=== PATIENT | male | born 1970 | race Caucasian/White ===

== ENCOUNTER 2017-11-03 09:55 | Emergency (ER) | payer OTHER ==
[2017-11-03 10:21] VITALS: TEMP 98.4
--- NOTE | 2017-11-03 10:53 | ED PDOC ---
Arrival/HPI - General Chief Complaint: Finger,Hand,&Wrist Time Seen by Provider: 11/03/17 10:45 Historian: Patient - History of Present Illness Narrative History of Present Illness (Text): 11/03/17 10:46 This 47 yo male presents to this ED c/o left 4th finger injury and pain x 3 hours. Patient stated while walking down stairs, he tripped and fell down on the floor fro 1 step. He stated his finger hyperflexed on the fall. Denies other complains. Denies BOWLES, diplopia, dysarthria, sob, cp, abdominal pain, dizziness, or abnormal gait. Time/Duration: 1-3 hours Context: Home Past Medical History - Provider Review Nursing Documentation Reviewed: Yes - Psychiatric Hx Psychophysiologic Disorder: No Hx Substance Use: No Family/Social History - Physician Review Nursing Documentation Reviewed: Yes Family/Social History: Other (noncontributory) Smoking Status: Never Smoked Hx Alcohol Use: No Hx Substance Use: No Allergies/Home Meds Allergies/Adverse Reactions: Allergies No Known Allergies Allergy (Verified 11/03/17 10:15) Review of Systems - Review of Systems Constitutional: Normal. absent: Fatigue, Weight Change, Fevers, Night Sweats Eyes: Normal ENT: Normal Respiratory: Normal Cardiovascular: Normal Gastrointestinal: Normal Genitourinary Male: Normal Musculoskeletal: Other (see hpi) Skin: Normal Neurological: Normal Endocrine: Normal Hemo/Lymphatic: Normal Psychiatric: Normal Physical Exam Vital Signs Temp Pulse Resp BP Pulse Ox 11/03/17 10:15 98.4 F 72 16 107/77 99 Temperature: Afebrile Blood Pressure: Normal Pulse: Regular Respiratory Rate: Normal Appearance: Positive for: Well-Appearing, Non-Toxic, Comfortable Pain Distress: None Mental Status: Positive for: Alert and Oriented X 3 - Systems Exam Head: Present: Atraumatic, Normocephalic, Other (no raccoon sign) Pupils: Present: PERRL, Other (no hyphema) Extroacular Muscles: Present: EOMI Conjunctiva: Present: Normal Ears: Present: Normal, Other (no hemotympanum) Mouth: Present: Moist Mucous Membranes Neck: Present: Normal Range of Motion Back: Present: Normal Inspection Upper Extremity: Present: NORMAL PULSES, Tenderness, Swelling, Capillary Refill < 2s, Other ((+) left 4th finger, PIPJ area is swollen and tender. Decreased ROM on this finger due to pain. Ring finger on affected finger.). No: Edema Lower Extremity: Present: Normal Inspection, Normal ROM Neurological: Present: GCS=15, CN II-XII Intact, Speech Normal, Motor Func Grossly Intact Skin: Present: Warm, Dry, Normal Color. No: Rashes Psychiatric: Present: Alert, Oriented x 3, Normal Insight, Normal Concentration Medical Decision Making ED Course and Treatment: 11/03/17 11:35 Re-evaluation. Patient feels better. Discussed results and plan with patient who expresses understanding. All questions answered and there is agreement with the plan to discharge home with instructions. Patient stable for discharge. Return if symptoms persist or worsen. Patient was recommended to see hand specialist in 3-5 days, and to return to ED if pain worsen. NATALIA. Re-evaluation Time: 11:35 Reassessment Condition: Re-examined, Improved - RAD Interpretation Narrative RAD Interpretations (Text): 11/03/17 11:35 Finger Fracture: (+) prox. middle phalanx Fx., left 4th finger Radiology Orders: 11/03/17 10:45 HAND LEFT 4TH DIGIT (FINGER) [RAD] Stat - Medication Orders Current Medication Orders: Discontinued Medications Ibuprofen (Motrin Tab) 600 mg PO STAT STA Stop: 11/03/17 11:32 Disposition/Present on Arrival - Present on Arrival Any Indicators Present on Arrival: No History of DVT/PE: No History of Uncontrolled Diabetes: No Urinary Catheter: No History of Decub. Ulcer: No History Surgical Site Infection Following: None - Disposition Have Diagnosis and Disposition been Completed?: Yes Diagnosis: Fracture of phalanx of finger Disposition: HOME/ ROUTINE Disposition Time: 11:37 Patient Plan: Discharge Condition: GOOD Discharge Instructions (ExitCare): Finger Fracture (ED) Additional Instructions: Call private doctor for follow up visit in 3-5 days. Do not remove finger splint till evaluated by hand doctor. Keep splint clean and dry. Take medication for pain as instructed with food. Return to emergency if pain worsen. Keep finger elevated, rest, ice, splint. Prescriptions: Ibuprofen [Motrin] 600 mg PO Q8 PRN #20 tab PRN Reason: Pain, Severe (8-10) Referrals: Umesh Roberts MD [Staff Provider] - Follow up with primary Forms: Instilling Values (Wol[employer])
[2017-11-03 11:50] VITALS: BP 105/71; PULSE 69; RESP 18; O2SAT 98
--- NOTE | 2017-11-03 14:40 | RAD ---
PROCEDURE: Left Hand Radiographs. HISTORY: pain s/p trauma COMPARISON: None. FINDINGS: BONES: There is a minimally displaced fracture through the base of the 4th middle phalanx. This extends into the articular surface on the ventral side JOINTS: Normal. No osteoarthritic changes. SOFT TISSUES: Normal. OTHER FINDINGS: None. IMPRESSION: There is a minimally displaced fracture through the base of the 4th middle phalanx. This extends into the articular surface on the ventral side
== END 2017-11-03 11:55 | disposition home or self-care (01) ==
LOC: ED 09:55
DX: S62.625A Displaced fracture of middle phalanx of left ring finger, initial encounter for closed fracture (principal); W10.8XXA Fall (on) (from) other stairs and steps, initial encounter; Y92.89 Other specified places as the place of occurrence of the external cause